=== PATIENT | female | born 1955 | race Caucasian/White ===

== ENCOUNTER 2016-07-09 06:30 | Day surgery (SDC) | payer BC ==
--- NOTE | ~2016-07-09 | EGD ---
EGD REPORT [facility] [address] [id number] NAME: CHRISTA POOL : 55 STATUS : REG [facility] [place] PAT#: [id number] AGE: 61 ADM/REG DATE : 07/09/16 MR#: [id number] REPORT SERV DATE: 07/09/16 DICTATED BY: STEPHANIE SANCHEZ DATE: 07/09/16 REPORT STATUS : Draft TRANSCRIBED BY: [facility] DATE: 07/09/16 Endoscopy Center Patient Name: Christa Pool Date of : 1955 Attending MD: STEPHANIE SANCHEZ, Procedure Date No Time: 07/09/2016 Procedure: Upper GI endoscopy Indications: Dysphagia, Esophageal reflux symptoms that persist despite appropriate therapy Referring MD: Patricia Pineda Medicines: Propofol per Anesthesia Complications: No immediate complications. Estimated blood loss: Minimal. Procedure: Pre-Anesthesia Assessment: - ASA Grade Assessment: III - A patient with severe systemic disease. After obtaining informed consent, the endoscope was passed under direct vision. Throughout the procedure, the patient's blood pressure, pulse, and oxygen saturations were monitored continuously. The GIF [id number] was introduced through the mouth, and advanced to the second part of duodenum. The upper GI endoscopy was accomplished with ease. The patient tolerated the procedure well. Findings: A widely patent and mild Schatzki ring (acquired) was found at the gastroesophageal junction. A guidewire was placed and the scope was withdrawn. Dilation was performed with a Savary dilator with mild resistance at 60 Fr. Estimated blood loss was minimal. The Z-line was found 41 cm from the incisors. Patchy mild inflammation characterized by congestion (edema) and erythema was found in the gastric body and in the gastric antrum. Biopsies were taken with a cold forceps for histology. Estimated blood loss: none. The duodenal bulb and 2nd part of the duodenum were normal. Impression: - Widely patent and mild Schatzki ring. Dilated. - Z-line 41 cm from the incisors. - Gastritis. Biopsied. - Normal duodenal bulb and 2nd part of the duodenum. Recommendation: - Patient has a contact number available for emergencies. The signs and symptoms of potential delayed complications were discussed with the patient. Return to EGD REPORT [address] [address] NAME: CHRISTA POOL : [birth year] STATUS : REG [facility] [place] PAT#: [id number] AGE: 61 ADM/REG DATE : 07/09/16 MR#: [id number] REPORT SERV DATE: 07/09/16 DICTATED BY: STEPHANIE SANCHEZ DATE: 07/09/16 REPORT STATUS : Draft TRANSCRIBED BY: [employer] [facility] [place] [facility] DATE: 07/09/16 normal activities tomorrow. Written discharge instructions were provided to the patient. - Follow an antireflux regimen. - Discharge patient to home (with escort). - Full liquids today, soft diet tomorrow, and resume regular diet the day after tomorrow. - No aspirin, ibuprofen, naproxen, or other non-steroidal anti-inflammatory drugs. - Continue present medications. - Await pathology results. - Return to GI clinic in 4 weeks. Procedure Code(s): --- Professional --- 23955, Esophagogastroduodenoscopy, flexible, transoral; with insertion of guide wire followed by passage of dilator(s) through esophagus over guide wire 85140, Esophagogastroduodenoscopy, flexible, transoral; with biopsy, single or multiple Diagnosis Code(s): --- Professional --- K22.2, Esophageal obstruction K29.70, Gastritis, unspecified, without bleeding R13.10, Dysphagia, unspecified K21.9, Gastro-esophageal reflux disease without esophagitis CPT copyright 2013 [employer]. All rights reserved. The codes documented in this report are preliminary and upon fish net stringer review may be revised to meet current compliance requirements. STEPHANIE SANCHEZ, 07/09/2016 9:06 AM This report has been signed electronically. Number of Addenda: 0 Note Initiated On: 07/09/2016 8:29 AM Scope Withdrawal Time 0 hours 0 minutes 0 seconds [address] [place] [address]
[~2016-07-09 06:30] MED LIST: ASAB PO; BIO IDENTICAL HORMON SL; CO Q-10100 MG PO; FISH OIL1200 MG PO; FLEX PO; IMITREX50 PO; MEVACOR40 MG PO; MICROZIDE PO; MULTI-VIT HP PO; PROTONIX PO
== END 2016-07-09 23:59 | disposition home or self-care (01) ==
LOC: DMU 06:30
PROVIDERS: Internal Medicine Gastroenterology
PROC: 0DB68ZX Excision of Stomach, Via Natural or Artificial Opening Endoscopic, Diagnostic (ICD-10-PCS; principal; 2016-07-09 09:30)
PROC: 0D747ZZ Dilation of Esophagogastric Junction, Via Natural or Artificial Opening (ICD-10-PCS; 2016-07-09 09:30)
DX: K22.2 Esophageal obstruction (principal); K29.70 Gastritis, unspecified, without bleeding; R13.10 Dysphagia, unspecified; K21.9 Gastro-esophageal reflux disease without esophagitis; H81.09 Meniere's disease, unspecified ear; E78.00 Pure hypercholesterolemia, unspecified; G43.909 Migraine, unspecified, not intractable, without status migrainosus; J45.909 Unspecified asthma, uncomplicated; Z90.5 Acquired absence of kidney; Z98.890 Other specified postprocedural states; Z86.73 Personal history of transient ischemic attack (TIA), and cerebral infarction without residual deficits; Z41.1 Encounter for cosmetic surgery; Z98.82 Breast implant status; Z86.19 Personal history of other infectious and parasitic diseases; Z79.899 Other long term (current) drug therapy; Z79.82 Long term (current) use of aspirin; Z88.2 Allergy status to sulfonamides
CPT/HCPCS: 88305